=== PATIENT | female | born 1985 | race Caucasian/White ===

== ENCOUNTER 2018-07-07 19:26 | Emergency (ER) | payer MEDICAID ==
[~2018-07-07] VITALS: Ht 157.5 cm; Wt 52.1 kg
[2018-07-07 19:34] VITALS: BP 124/79
[2018-07-07] MEDS ORDERED: LIDOcaine 1% (10mg/ml)w/preservative injection 20ml MDV IJ ONE (20:30)
[2018-07-07] MEDS ORDERED: SULF1TAB49 PO (21:02)
== END 2018-07-07 21:07 | disposition home or self-care (01) ==
LOC: ER 19:27
DX: L02.413 Cutaneous abscess of right upper limb (principal); F15.90 Other stimulant use, unspecified, uncomplicated; F12.90 Cannabis use, unspecified, uncomplicated; Z91.013 Allergy to seafood; Z98.890 Other specified postprocedural states
CPT/HCPCS: 10060; 99283; J2001

== ENCOUNTER 2019-02-23 02:41 | Emergency (ER) | payer MEDICAID ==
[~2019-02-23] VITALS: Ht 157.5 cm; Wt 56.8 kg
[2019-02-23] MEDS ORDERED: NO HOME MEDS (02:54)
[2019-02-23] MEDS ORDERED: ibuprofen 200mg tablet PO ONE (03:00)
[2019-02-23] MEDS ORDERED: sulfamethoxazole/trimethoprim DS (800/160mg) tablet PO ONE (03:00)
[2019-02-23] MEDS ORDERED: cephalexin 250mg capsule PO ONE (03:00)
[2019-02-23] MEDS ORDERED: ibuprofen tablet 400 MG TABLET PO ONE (03:00)
[2019-02-23] MEDS ORDERED: LIDOcaine 1% w/epiNEPHrine 1:200,000 30ml vial IM ONE (03:00)
[2019-02-23] MEDS ORDERED: CEPH500C5 PO (03:21)
[2019-02-23] MEDS ORDERED: BACDS PO (03:21)
--- NOTE | 2019-02-23 03:21 | NUR ---
i gave the pt warmed wet clothes to go into the bathroom and wash her ronal area
[2019-02-23 03:43] VITALS: BP 126/89
== END 2019-02-23 03:46 | disposition home or self-care (01) ==
LOC: ER 02:41
DX: L02.31 Cutaneous abscess of buttock (principal); F12.90 Cannabis use, unspecified, uncomplicated; F15.90 Other stimulant use, unspecified, uncomplicated; Z91.013 Allergy to seafood; Z79.2 Long term (current) use of antibiotics; Z79.899 Other long term (current) drug therapy; Z98.890 Other specified postprocedural states
CPT/HCPCS: 10060; 99284; J3490

== ENCOUNTER 2019-12-02 17:20 | Emergency (ER) | payer MEDICAID ==
[~2019-12-02] VITALS: Ht 157.5 cm; Wt 59.1 kg
[~2019-12-02 17:20] MED LIST: CEPH500C5 PO; NO HOME MEDS
[2019-12-02 17:37] VITALS: BP 142/89
[2019-12-02] MEDS ORDERED: proparacaine 0.5% ophthalmic drops 15ml EACHEYE ONE (18:10)
[2019-12-02] MEDS ORDERED: ciprofloxacin 0.3% 2.5ml ophthalmic solution LEFTEYE ONE (18:30)
== END 2019-12-02 18:49 | disposition home or self-care (01) ==
LOC: ER 17:20
DX: S05.02XA Injury of conjunctiva and corneal abrasion without foreign body, left eye, initial encounter (principal); F12.90 Cannabis use, unspecified, uncomplicated; F15.90 Other stimulant use, unspecified, uncomplicated; Z72.89 Other problems related to lifestyle; Z91.013 Allergy to seafood; Z79.899 Other long term (current) drug therapy; Z98.890 Other specified postprocedural states; W22.8XXA Striking against or struck by other objects, initial encounter; Y93.89 Activity, other specified; Y92.89 Other specified places as the place of occurrence of the external cause; Y99.8 Other external cause status
CPT/HCPCS: 99283

== ENCOUNTER 2021-06-03 03:07 | Emergency (ER) | payer SELFPAY ==
[~2021-06-03] VITALS: Ht 157.5 cm; Wt 61.3 kg
[~2021-06-03 03:07] MED LIST changes: -CEPH500C5 PO
[2021-06-03 03:25] VITALS: BP 136/92
== END 2021-06-03 07:04 | disposition left against medical advice (07) ==
LOC: ER 03:08
DX: L08.9 Local infection of the skin and subcutaneous tissue, unspecified (principal); Z53.21 Procedure and treatment not carried out due to patient leaving prior to being seen by health care provider

== ENCOUNTER 2021-06-06 17:08 | Emergency (ER) | payer SELFPAY | END 2021-06-07 07:26 | disposition left against medical advice (07) | LOC: ER 17:08 | DX: L02.91 Cutaneous abscess, unspecified (principal); Z53.21 Procedure and treatment not carried out due to patient leaving prior to being seen by health care provider ==

== ENCOUNTER 2021-09-09 15:11 | Emergency (ER) | payer SELFPAY ==
[~2021-09-09] VITALS: Ht 157.5 cm; Wt 59.1 kg
[~2021-09-09 15:11] MED LIST changes: +LIDOcaine 1% W/epiNEPHrine 1:100,000 20ml vial ONE
[2021-09-09 15:51] VITALS: BP 119/84
[2021-09-09] MEDS ORDERED: CEPH-585 PO (16:29)
[2021-09-09] MEDS ORDERED: SULF1TAB49 PO (16:29)
== END 2021-09-09 16:42 | disposition home or self-care (01) ==
LOC: ER 15:12
DX: L02.411 Cutaneous abscess of right axilla (principal)
CPT/HCPCS: 10060; 99283; J3490

== ENCOUNTER 2023-09-03 20:19 | Emergency (ER) | payer OTHER ==
[~2023-09-03] VITALS: Ht 157.5 cm; Wt 59.1 kg
[~2023-09-03 20:19] MED LIST changes: -LIDOcaine 1% W/epiNEPHrine 1:100,000 20ml vial ONE
[2023-09-03 20:27] VITALS: BP 144/87; PULSE 98; TEMP 98.8; O2SAT 98
[2023-09-03 21:29] LABS: BASOPHILS % (AUTO) 0.4 % (0-1); EOSINOPHILS # (AUTO) 0.2 X10'3 (0-0.9); EOSINOPHILS % (AUTO) 1.9 % (0-6); HEMATOCRIT 45.5 % (35.0-45.0); HEMOGLOBIN 15.5 g/dl (12.0-16.0); LYMPHOCYTES # (AUTO) 1.7 X10'3 (1.1-4.8); LYMPHOCYTES % (AUTO) 20.1 % (21-51); MEAN CORPUSCULAR HEMOGLOBIN 30.7 PG (27.0-31.0); MEAN CORPUSCULAR VOLUME 90.1 FL (78-98); MEAN PLATELET VOLUME 6.8 FL (7.4-10.4); MONOCYTES # (AUTO) 0.5 X10'3 (0-0.9); MONOCYTES % (AUTO) 5.9 % (2-12); NEUTROPHILS # (AUTO) 6.2 X10'3 (1.8-7.7); NEUTROPHILS % (AUTO) 71.7 % (42-75); PLATELET COUNT 367 X10'3 (140-440); RED BLOOD COUNT 5.05 X10'6 (4.20-5.60); RED CELL DISTRIBUTION WIDTH 13.8 % (11.5-14.5); WHITE BLOOD COUNT 8.6 X10'3 (4.5-11.0)
[2023-09-03 21:32] LABS: ALANINE AMINOTRANSFERASE 23 U/L (12-78); ALBUMIN 3.8 G/DL (3.4-5.0); ALKALINE PHOSPHATASE 87 IU/L (46-116); AMYLASE 84 U/L (25-115); ANION GAP 8 (8-16); ASPARTATE AMINO TRANSFERASE 17 U/L (10-37); BILIRUBIN,TOTAL 0.2 MG/DL (0.1-1.0); BLOOD UREA NITROGEN 18 MG/DL (7-18); BUN/CREATININE RATIO 25.7 (10.0-20.0); CALCIUM 9.2 MG/DL (8.5-10.1); CHLORIDE 103 MMOL/L (99-107); GLUCOSE 107 MG/DL (70-104); LIPASE 34 U/L (16-77); POTASSIUM 3.5 MMOL/L (3.5-5.1); SODIUM 138 MMOL/L (135-145); TOTAL CARBON DIOXIDE 27.4 MMOL/L (24-32); TOTAL PROTEIN 7.6 G/DL (6.4-8.2); eCRCL 89 ML/MIN; eGFR > 90 ML/MIN
[2023-09-03 23:13] LABS: URINE HCG NEGATIVE (NEG)
[2023-09-03 23:14] LABS: BILIRUBIN,URINE NEGATIVE (Neg); CLARITY,URINE SLIGHTLY CLOUDY (Clear); COLOR,URINE YELLOW (Yellow); GLUCOSE, URINE NEGATIVE (Neg); KETONES,URINE NEGATIVE (Neg); LEUKOCYTE ESTERASE ,URINE NEGATIVE (Neg); NITRITES, URINE NEGATIVE (Neg); OCCULT BLOOD,URINE TRACE-INTACT (Neg); PROTEIN,URINE NEGATIVE (Neg); UROBILINOGEN,URINE 0.2 E.U/dL (0.2-1.0)
[2023-09-03 23:17] LABS: UA COLLECTION TYPE CLN CATCH MIDSTREAM
[2023-09-03 23:21] LABS: BACTERIA,URINE FEW /HPF (Neg); SQUAMOUS EPITHELIAL CELL,UR FEW /LPF (FEW); WBC,URINE 0-4 /HPF (0-4)
[2023-09-03] MEDS ORDERED: morphine 4 MG/ML inj SYRINge IV ONE (23:25)
[2023-09-03] MEDS ORDERED: ondansetron/PF 4mg/2ml inj IV ONE (23:25)
[2023-09-03] MEDS ORDERED: iohexol 300mg/ml 100ml inj. ONE (23:27)
[2023-09-03] MEDS ORDERED: CefTRIAXone 2gm/D5W 50ml BAG 50 ML IV ONE (23:30)
[2023-09-03] MEDS ORDERED: METR-159 PO ×2 (23:31)
[2023-09-03] MEDS ORDERED: DOXY100C43 PO ×2 (23:31)
[2023-09-04] MEDS ORDERED: BISA-78 PO (01:50)
[2023-09-04] MEDS ORDERED: bisacodyl 5mg tablet.DR PO ONE (01:50)
[2023-09-04 01:52] VITALS: RESP 18
[2023-09-04] MEDS ORDERED: DOCU-171 PO (01:52)
[2023-09-08 07:13] LABS: CHLAMYDIA TRACHOMATIS, NAA Negative (Negative)
== END 2023-09-04 02:12 ==
LOC: ER 20:19 → EEVIPCON 20:19 → ER 09-04 02:12
DX: R10.31 Right lower quadrant pain (principal); R11.10 Vomiting, unspecified; E11.9 Type 2 diabetes mellitus without complications; I50.9 Heart failure, unspecified; I25.10 Atherosclerotic heart disease of native coronary artery without angina pectoris; J44.9 Chronic obstructive pulmonary disease, unspecified; I25.2 Old myocardial infarction; E78.00 Pure hypercholesterolemia, unspecified; F12.90 Cannabis use, unspecified, uncomplicated
CPT/HCPCS: 36415; 74176; 76856; 80053; 81001; 81025; 82150; 83690; 84145; 85025; 87491; 87591; 93976; 96374; 96375; 99285; J2270; J2405; Q9967